=== PATIENT | male | born 1985 | race Native Hawaiian/Other Pacific Islander ===

== ENCOUNTER 2020-08-08 10:19 | Emergency (ER) | payer OTHER ==
[~2020-08-08] VITALS: Ht 167.6 cm; Wt 122.5 kg
[2020-08-08 10:21] VITALS: BP 140/86
== END 2020-08-08 10:59 | disposition home or self-care (01) ==
LOC: ER 10:19
DX: R53.83 Other fatigue (principal); Z20.828 Contact with and (suspected) exposure to other viral communicable diseases; Z88.2 Allergy status to sulfonamides